=== PATIENT | female | born 1965 | race Caucasian/White ===

== ENCOUNTER 2019-10-30 20:32 | Emergency (ER) | payer OTHER ==
[~2019-10-30] VITALS: Ht 170.2 cm; Wt 81.2 kg
[2019-10-30] MEDS ORDERED: JANUMET 50-1,01 EACH (20:44)
[2019-10-30] MEDS ORDERED: NORVASC5 MG (20:44)
[2019-10-30] MEDS ORDERED: SYNTHROID150 MCG (20:44)
[2019-10-30] MEDS ORDERED: CARVEDILOL12.5 MG (20:44)
[2019-10-30] MEDS ORDERED: LANTUS SOL100 UNIT/1 (20:44)
[2019-10-30] MEDS ORDERED: ASPIR 8181 MG (20:45)
[2019-10-30] MEDS ORDERED: IRON236 MG (20:45)
[2019-10-30] MEDS ORDERED: NEURONTIN600 M1 (20:45)
== END 2019-10-30 23:58 | disposition home or self-care (01) ==
LOC: ER 20:32
DX: K52.9 Noninfective gastroenteritis and colitis, unspecified (principal); R50.9 Fever, unspecified